=== PATIENT | female | born 2000 | race Caucasian/White ===

== ENCOUNTER 2019-12-03 | Emergency (ER) | payer BC ==
[~2019-12-03] MED LIST: AMOXICILLIN500 MG PO; LANSOPRAZOLE30 MG PO; MEDDOSEPAK PO; NAPROSYN500 MG PO; NO; PREVACID; PRILOSEC2.5 MG; ZOFRAN ODT4 MG PO
[2019-12-03 16:47] LABS: HEMATOCRIT 40.8 % (37.0-47.0); HEMOGLOBIN 14.4 g/dl (12.0-16.0); IMMATURE GRANULOCYTES 0.3 % (0.0-5.0); MEAN CELL VOLUME 86.8 fL CALC (80.0-100.0); MEAN CORPUSCULAR HGB 30.6 pG CALC (26.0-32.0); MEAN CORPUSCULAR HGB CONC 35.3 g/dL CAL (32.0-36.0); NEUT# 11.45 thou/uL (2.00-7.15); RED BLOOD COUNT 4.7 mill/uL (4.20-5.60); RED CELL DISTRI WIDTH 11.8 % (11.5-15.5)
[2019-12-03 16:52] LABS: URINE BILIRUBIN - DIPSTICK NEGATIVE (NEGATIVE); URINE BLOOD DIPSTICK TRACE-INTACT (NEGATIVE); URINE COLOR YELLOW; URINE GLUCOSE - DIPSTICK NEGATIVE (NEGATIVE); URINE KETONE >=80 mg/dL (NEGATIVE); URINE LEUK ESTERASE TRACE (NEGATIVE); URINE NITRITE - DIPSTICK NEGATIVE (Negative); URINE PROTEIN - DIPSTICK NEGATIVE (NEG-TRACE); URINE SPECIFIC GRAVITY >=1.030; URINE UROBILINOGEN - DIPSTICK 0.2 E.U./dL (0.2)
[2019-12-03 17:07] LABS: ALBUMIN 4.6 g/dL (3.2-5.0); ALKALINE PHOSPHATASE 39 u/l (38-126); ANION GAP 14 (6-22 (CALC)); BILIRUBIN, TOTAL 0.7 mg/dL (0.0-1.4); BUN 10 mg/dL (7-17); BUN/CREATININE RATIO 17 (12-20 (CALC)); CARBON DIOXIDE 23 mmol/l (22-30); CHLORIDE 104 mmol/l (95-108); CREATININE 0.6 mg/dL (0.5-1.0); GFR > 60 ML/MIN (>=60 (CALC)); GFR FOR AFR.AMER. > 60 ML/MIN (>=60 (CALC)); POTASSIUM 3.7 mmol/l (3.5-5.1); SGOT/AST 26 u/l (14-36); SODIUM 137 mmol/l (137-146); TOTAL PROTEIN 7.6 g/dL (6.3-8.2)
[2019-12-03 17:50] LABS: BETA-HCG, QUANT(RESULT NUMBER) 117660 mIU/mL
[2019-12-03] MEDS ORDERED: PHENERGAN25 MG/TAB PO (17:53)
--- NOTE | 2019-12-05 12:24 | NUR ---
COVID results called to patient with confirmation of name and . Encourage stay safe - stay home recommendations, frequent handwashing/sanitizing.
== END 2019-12-03 18:30 | disposition home or self-care (01) | DRG 833 ==
PROVIDERS: Family Medicine
DX: O26.811 Pregnancy related exhaustion and fatigue, first trimester (principal); Z3A.10 10 weeks gestation of pregnancy; Z20.828 Contact with and (suspected) exposure to other viral communicable diseases